=== PATIENT | female | born 1980 | race Caucasian/White ===

== ENCOUNTER 2017-05-26 03:56 | Emergency (ER) | payer BC ==
[2017-05-26 04:04] VITALS: BP 129/70
--- NOTE | 2017-05-26 04:19 | ERNOTE ---
Lower Extremity HPI - Narrative Date of Service: 05/26/17 - General Lower Extremities Pain: ankle: right - pain and swelling in the lateral malleolus. Time Seen by Provider: 05/26/17 04:13 Source: patient Exam Limitations: no limitations - Immun/Allergies/Home Medications Immunizations: IMMUNIZATION HX Immunizations Up to Date Yes History of Influenza Vaccine No Allergies/Adverse Reactions: Allergies Allergy/AdvReac Type Severity Reaction Status Date / Time cephalexin AdvReac Mild fever Verified 05/26/17 03:59 Home Medications: HOME MEDICATIONS HYDROcodone/ACETAMINOPHEN [[place] 5-325] 1 - 2 tab PO QID PRN #12 tab 05/26/17 [ Last Taken Unknown] - History of Present Illness Narrative: Patient was walking earlier on this morning around 2 AM when she twisted her right ankle and since then she's had pain in the lateral aspect of her right ankle and inability to bear weight. She denies any loss of consciousness or hitting any other part of her body. Review of Systems - Review of Systems Constitutional: Present: no symptoms reported EYE: Present: no symptoms reported ENT: Present: no symptoms reported Respiratory: Present: no symptoms reported Cardiology: Present: no symptoms reported Gastrointestinal/Abdominal: Present: no symptoms reported Genitourinary: Present: no symptoms reported Musculoskeletal: Present: See HPI - Patient's Past Medical History Patient History - Medical: Obesity Patient History - Cardiac/Respiratory: No pertinent hx Patient History - Cancer: No Hx of Cancer Patient History - Surgical Procedures: No surgical history Patient History - Other: None - Family History Grandmother-Paternal Family History - Medical: Other Family History - Cardiac/Respiratory: Coronary Heart Disease - Social History Abuse History: No History of abuse Psych History: Hx of Depression Smoking Status: Current some day smoker - Immunizations Immunizations Up to Date: Yes History of Influenza Vaccine: No Physical Exam - Physical Exam General Appearance: Present: wd/wn, alert, no apparent distress Head Exam: Present: normal inspection, no evidence of injury Respiratory: Present: no respiratory distress, normal breath sounds, no accessory muscle use, chest nontender, lungs clear Cardiovascular/Chest: Present: regular rate, rhythm, no murmur, normal peripheral pulses Back Exam: Present: normal inspection Extremity Exam: Present: other - there is slight swelling in the area of the lateral malleolus upon examination of the right ankle. There is no deformity, there is no ecchymosis there is no redness there are no open lesions. Upon palpation patient is tender and a corresponding region she states that she is unable to bear weight. ED Progress - Vital Signs Patient's Vital Signs:: I have reviewed the patient's vital signs. Vital Signs: Vital Signs 05/26/17 04:00 Temperature 36.2 C L Pulse Rate 84 Respiratory 16 Rate Blood Pressure 129/70 O2 Sat by Pulse 99 Oximetry - X-Ray X-Ray #1 X-Ray: ankle - Progress/Reassessment Chief Complaint: Ankle Injury/ Pain Plan - Plan Plan: Patient has a distal fibula fracture which is spiral in nature and slightly displaced. This case was discussed with Dr. Hernandez patient will be placed in an OCL and pain will be treated and she will be sent to Dr. Hernandez next week in the clinic Departure Clinical Impression: Fracture of distal fibula Qualifiers: Encounter type: initial encounter Fracture type: closed Fracture morphology: torus Laterality: right Qualified Code(s): S82.821A - Torus fracture of lower end of right fibula, initial encounter for closed fracture - Departure Disposition: Home self-care Condition: Good Instructions: Undisplaced Fibular Ankle Fracture Treated With Immobilization, Adult Additional Instructions: Please keep the OCL on and elevate and ice her ankle please use crutches for ambulation, please follow up with orthotic clinic next week. Referrals: Lin Porras MD [Primary Care Provider] - Prescriptions: HYDROcodone/ACETAMINOPHEN [[place] 5-325] 1 - 2 tab PO QID PRN #12 tab PRN Reason: Pain
[2017-05-26] MEDS ORDERED: HYDROcodone/ACETAMINOPHEN 1 EACH TABLET ONE (05:01)
== END 2017-05-26 05:18 | disposition home or self-care (01) ==
LOC: ER 03:56
PROC: 2W3QX1Z Immobilization of Right Lower Leg using Splint (ICD-10-PCS; principal; 2017-05-26)
DX: S82.821A Torus fracture of lower end of right fibula, initial encounter for closed fracture (principal); X50.1XXA Overexertion from prolonged static or awkward postures, initial encounter; Y93.01 Activity, walking, marching and hiking